=== PATIENT | female | born 1940 | race Caucasian/White ===

== ENCOUNTER 2016-11-08 09:39 | Inpatient (IN) | payer MEDICARE ==
[~2016-11-08] VITALS: Ht 159.4 cm; Wt 68.8 kg
[2016-11-08] VITALS (12 sets, daily range): BP systolic 112–146; BP diastolic 61–92; PULSE 57–79; RESP 12–20; O2SAT 93–98
[~2016-11-08 09:39] MED LIST: Bupivacaine Liposome 1.3% 20 mL Inj INFILTRATE ONE; CeFAZolin Inj 2 GM in IV Premix 1 EACH IV ONE; HYDR12.55 PO; IBUP200C PO; Lactated Ringer's 1,000 ML IV ONE; Vancomycin 1 Gm/200 mL NS Premix IV ONE
[2016-11-08] MEDS ORDERED: CeFAZolin 2 Gm/50 mL D5W Duplex Bag IV ONE (09:51)
[2016-11-08] MEDS ORDERED: Vancomycin 1,000mg/200 mL NS IV ONE (09:51)
[2016-11-08] MEDS ORDERED: 0.9% Sodium Chloride 100 ML ONE (10:50)
[2016-11-08] MEDS ORDERED: Tranexamic Acid 100 mg/mL 10 mL Inj ONE (10:50)
--- NOTE | 2016-11-08 10:54 | PCM.HPANE ---
Patient Data Surgeon Admitting Provider: Attending Provider:Bossman Barboza DO Primary Care Physician:Shital Leslie Other Provider:Andrea Knott Anesthesia Reason for Visit Left Hip Arthritis LEFT HIP ARTHRITIS Ht/WT & BMI Height (Feet): 5 Height (Inches): 2.75 Weight (Kilograms): 68.8 Body Mass Index 27.00 Allergies Coded Allergies: azithromycin (Verified Allergy, Unknown, hives, 10/29/16) Past Anesthesia History Anesthesia History: Denies:: Anesthesia Reactions, Fam Anesthesia Reaction Diabetes History Hx Diabetes?: No MRSA MRSA: No Medications Hypertension Medication: Yes Home Meds Incl Beta Garrett: No Reported Medications Ibuprofen 200 Mg [id number] Mg PO QID PRN For Pain Ref 0 10/29/16 Hydrochlorothiazide 12.5 Mg Tukfsu74.5 Mg PO DAILY 30 Days Ref 0 10/29/16 History History of ENT Problems?: Yes HEENT History: Positive for:: Glaucoma Denies:: Abnormal Airway Cataracts Difficult Intubation Dysphagia Hearing Problem Sinus Problem TMJ Denture Type: None Teeth Condition: Within Normal Limits Hx of Heart Problems?: Yes Cardiovascular History: Positive for:: Hypertension Denies:: AICD Abdominal Aortic Aneurism Atrial Fibrillation Cardiac Surgery Chest Pain Congestive Heart Failure Coronary Artery Disease Edema Heart Murmur Irregular Heartbeat Pacemaker Peripheral Vascular Valvular Heart Disease Hx of Respiratory Problem?: No Respiratory History: Denies:: Asthma COPD Emphysema Oxygen Administration Pneumonia Tuberculosis Use of C-PAP Machine Hx Neurologic Problems?: No Neurological History: Denies:: Alzheimer's Disease CVA Dementia Dizziness Headaches Multiple Sclerosis Parkinson's Disease Peripheral Neuropathy Seizures TIA Hx of GI Problems?: No Gastrointestinal History: Denies:: Cirrhosis Diverticulitis Gall Bladder Disease Gastroesphageal Reflux Gastrointestinal Bleeding Heartburn Hepatitis Hiatal Hernia Liver Disease Rectal Bleeding Hx of Problems?: No Genitourinary History: Denies:: Kidney Stones Urinary Tract Infection Female Hx: Denies:: Currently (hysterectomy) Problems with Breasts? Skin History: Denies:: History Skin Disorders? Pressure Ulcers Hx Musculoskeletal Problems?: Yes Musculoskeletal History: Positive for:: Degenerative Joint Musculoskeletal Trauma (left hip current admission problem) Osteoarthritis Denies:: Back Injury Fibromyalgia Joint Replacement Myasthenia Gravis Systemic Lupus Hx of Psycho/Social Problems?: No Psycho Social History: Denies:: Anxiety Hx Depression Hx Surgeries?: Yes (hysterectomy) Hx Any Other Health Problems?: Yes Other History: Positive for:: Cancer (uterine) Denies:: Thyroid Disease History Blood Transfusions: Positive for:: Accept Blood Products? Denies:: Blood Transfusions Hx Diabetes: No Hx Alcohol Use: YesAlcoholic Drinks Per Day: one to two glasses yearlyHx Substance Use: NoHave You Smoked inLast 12 mo: No Stop/Bang Treated for Sleep Apnea?: No Do You Have a CPAP Machine?: No P-Blood Pressure: treated: Yes B- Body Mass Index > 35 kg/m2: No A- Age over 50: Yes N- Neck Large Circumference: No G- Gender Male: No MALIK Risk Assessment: Low Risk, <3 Yes Risk Assessment Category Category 1A: Patient has history of documented sleep apnea, and HAS NOT received any narcotic, sedative or anesthesia administration during this stay. Category 1B: Patient has history of documented sleep apnea, and HAS received any narcotic , sedative or anesthesia administration during this stay Category 2: Patient has SUSPECTED Obstructive Sleep Apnea, and HAS received any narcotic , sedative or anesthesia administration during this stay. Category 3: Patient has SUSPECTED Obstructive Sleep Apnea and HAS NOT received narcotic, sedative or anesthesia administration during this stay. Category 4: Outpatient in Procedural Areas with known sleep apnea or who screen positive for High Risk via the STOP/BANG questionnaire. Exam Exam Vital Signs Vital Signs Date Time Temp Pulse Resp B/P Pulse Ox O2 Delivery O2 Flow Rate FiO2 11/08/16 10:15 36.3 61 18 146/75 97 Room Air General Appearance: Alert, Oriented X3, Cooperative, No Acute Distress HEENT/AIRWAY: MP 1 Lungs: Clear to Auscultation, Normal Air Movement Heart: Exam Unremarkable, Regular Rate/Rhythm, Normal S1, Normal S2, No Murmurs /Rubs/Gallops Meds/Labs/Diagnostics Admission Meds Current Medications Vancomycin/0.9 % Sod Chloride 1000 mg/Premix 200 ml @ 133.333 mls/hr 01 ONCE IV Last administered on 11/08/16 10:16; Start 11/08/16 at 01:00; Stop at 02:29; Status DC Lactated Ringer's (Lr) 1,000 ml @ 120 mls/hr Q8H20M ONCE IV Last administered on 11/08/16 09:50; Start 11/08/16 at 05:00; Stop 11/08/16 at 13:19 Plan Impression Patient chart reviewed, patient interviewed and anesthestic plan with risks, benefits, and alternatives discussed, and informed consent obtained. ASA Physical Status: ASA2 Mod Systemic Disease Anesthetic Plan: Regional Block Bene/Risks/Altern/Consents: Yes HP Complete Prior to Induction: Yes Bossman Lancaster MD Nov 08, 2016 10:54
[2016-11-08] MEDS ORDERED: Lactated Ringer's 1,000 ML IV SCH (11:22)
[2016-11-08] MEDS ORDERED: Lactated Ringer's 500 ML IV PRN (11:22)
[2016-11-08] MEDS ORDERED: Ondansetron 2 mg/mL 2 mL Inj IVPUSH PRN ×2 (11:25→13:55)
[2016-11-08] MEDS ORDERED: fentaNYL-PF 50 mCg/mL 2 mL Inj IVPUSH PRN (11:25)
[2016-11-08] MEDS ORDERED: EPHEDrine Sulfate 50 mg/mL Inj IVPUSH PRN (11:25)
[2016-11-08] MEDS ORDERED: MetoCLOpramide 5 mg/mL 2 mL Inj IVPUSH PRN (11:25)
[2016-11-08] MEDS ORDERED: Phenylephrine 10,000 mCg/mL Inj IVPUSH PRN (11:25)
[2016-11-08] MEDS ORDERED: HYDROmorphone 1 mg/mL Inj IVPUSH PRN (11:25)
[2016-11-08] MEDS ORDERED: Ropivacaine-PF 0.5% 30 mL Inj INFILTRATE ONE (11:56)
[2016-11-08] MEDS ORDERED: hydrOXYzine Pamoate 25 mg Capsule PO PRN (13:55)
[2016-11-08] MEDS ORDERED: Acetaminophen IV 1,000 MG in IV Premix 1 EACH IV ONE (13:55)
[2016-11-08] MEDS ORDERED: diphenhydrAMINE 25 mg Capsule PO PRN (13:55)
[2016-11-08] MEDS ORDERED: Polyethylene Glycol (PEG) 17 Gm Powder PO PRN (13:55)
[2016-11-08] MEDS ORDERED: HYDROcodone-APAP 5-325 mg Tablet PO PRN (13:55)
[2016-11-08] MEDS ORDERED: Magnesium Hydroxide 10 mL Oral Concentration PO PRN (13:55)
[2016-11-08] MEDS ORDERED: Ketorolac 15 mg/mL Inj IVPUSH PRN (13:55)
--- NOTE | 2016-11-08 14:57 | DRSVH ---
PROCEDURE: X-RAY PELVIS W/LAT HIP (LT) ([id number]) INDICATIONS: post op TECHNIQUE: AP pelvis and lateral view of the left hip acquired. COMPARISON: [facility], , XR PELVIS W LATERAL HIP LT, 08/11/2016, 15:30. FINDINGS: Bones: Patient is status post left hip arthroplasty, with hardware components in expected positions. The hip joint appears congruent. The visualized bony structures appear intact. Soft tissues: Overlying postoperative changes are noted. No suspicious soft tissue densities. IMPRESSION: 1. Expected postsurgical changes status post left hip arthroplasty. Dictated by: Eyal Thomas M.D. on 11/08/2016 at 14:54 Approved by: Eyal Thomas M.D. on 11/08/2016 at 14:56
[2016-11-08] MEDS: 0.9% Sodium Chloride 1,000 ML IV SCH (14:59)
[2016-11-08 15:19] LABS: APPEARANCE,URINE HAZY (CLEAR,HAZY); COLOR,URINE STRAW (YELLOW); OCCULT BLOOD,URINE TRACE (NEGATIVE); UROBILINOGEN,URINE NORMAL (NORMAL)
[2016-11-08] MEDS ORDERED: HYDROmorphone 0.5 mg/0.5 mL iSecure Syringe IVPUSH PRN (15:39)
--- NOTE | 2016-11-08 16:02 | NUR ---
Post op Transfer to [facility] room 1007 via bed at 14:45. Report received from supercharge repair supervisor, Roaxnne Michaels. Pt alert and oriented, denies nausea and pain. Water weight to L hip, dressing CDI. Spinal block, decreased sensation to mid-thigh. Mccoy draining to gravity.
--- NOTE | 2016-11-08 16:06 | PCM.ANEP1 ---
Post Anesthesia PACU Phase 1 Assessment Date of Service: Nov 08, 2016 Vital Signs Vital Signs Date Time Temp Pulse Resp B/P Pulse Ox O2 Delivery O2 Flow Rate FiO2 11/08/16 14:35 36.1 60 14 122/61 96 Room Air 11/08/16 14:22 20 98 11/08/16 14:15 57 12 112/63 97 Room Air 11/08/16 14:10 64 18 122/66 96 Room Air 11/08/16 14:05 63 12 121/92 96 Room Air 11/08/16 14:00 63 12 118/62 96 Room Air 11/08/16 13:55 16 97 11/08/16 13:55 68 16 118/62 97 Room Air 11/08/16 13:52 36.3 68 15 123/70 97 Room Air 11/08/16 10:15 36.3 61 18 146/75 97 Room Air Anesthetic Administered: Regional Block Level of Alertness: Awake, talking HUFFMAN's with Equal Strength: No (spinal block) Pain: No Nausea or Vomiting: No CV Function & Hydration Stable: Yes Airway Device: Oxygen Delivery: Room Air Lungs: Clear to Auscultation, Normal Air Movement Dermatome Level: L3,4 (Thigh) PACU Phase 2 Assessment Complications: No Follow up Care: No Patient Instructions Provided: N/A Comments Block receding appropriately Bossman Lancaster MD Nov 08, 2016 16:06
[2016-11-08] MEDS: Sodium Chloride LOK Flush 10 mL Syringe IV SCH (16:10)
[2016-11-08] MEDS ORDERED: CeFAZolin Inj 2 GM in IV Premix 1 EACH IV SCH (16:30)
[2016-11-08] MEDS ORDERED: Dexamethasone 4 mg/mL Inj ONE (16:39)
[2016-11-08] MEDS ORDERED: EPHEDrine/NS 5 mg/mL 5 mL Syringe ONE (16:39)
[2016-11-08] MEDS ORDERED: Ondansetron 2 mg/mL 2 mL Inj ONE (16:39)
[2016-11-08] MEDS ORDERED: Phenylephrine/NS 100 mCg/mL 10 mL Syringe IVPUSH ONE (16:39)
[2016-11-08] MEDS ORDERED: Propofol 10,000 mCg/mL 20 mL Inj ONE (16:39)
[2016-11-08] MEDS ORDERED: fentaNYL-PF 50 mCg/mL 2 mL Inj ONE (16:39)
[2016-11-08] MEDS ORDERED: Bupivacaine 0.5% 50 mL Inj ONE (16:39)
[2016-11-08] MEDS: CeFAZolin Inj 2 GM in IV Premix 1 EACH IV SCH (18:24)
[2016-11-08] MEDS: Senna-Docusate 8.6-50 mg Tablet PO SCH (20:59)
[2016-11-09] MEDS: 0.9% Sodium Chloride 1,000 ML IV SCH ×2 (00:04→09:51)
[2016-11-09] MEDS: Sodium Chloride LOK Flush 10 mL Syringe IV SCH ×2 (00:30→08:24)
[2016-11-09] MEDS: CeFAZolin Inj 2 GM in IV Premix 1 EACH IV SCH (03:10)
--- NOTE | 2016-11-09 03:46 | NUR ---
General Pt is alert, oriented, and able to make needs known. No changes in LOC noted. Pleasant and cooperative with care. Denies N/V/D, pain, resp distress and/or SOB. Able to move all extremities with full sensation reported post spinal block. Denies numbness or tingling. Dressing on left hip is C/D/I and water weight on left hip in place. Pt encourage to get out bed to sit on the edge of the bed, pt declined and prefer to wait for physical in the morning. Able to flex and extend feet with no issue. devine catheter in place, patent and draining yellow urine. Will continue to monitor.
[2016-11-09 04:25] VITALS: BP 112/71; PULSE 60; RESP 17; O2SAT 94
[2016-11-09 05:43] LABS: BASOPHILS % (AUTO) 0.1 % (0-3); EOSINOPHILS % (AUTO) 0.3 % (0-5); MONOCYTES % (AUTO) 10.2 % (4-12); Mean Corpuscular Hemoglobin 31.3 pg (27.0-35.0); Mean Corpuscular Volume 94.5 fL (81-100); NEUTROPHILS % (AUTO) 77.3 % (40-74); Platelet Count 179 bil/L (150-400)
[2016-11-09] MEDS: Senna-Docusate 8.6-50 mg Tablet PO SCH (08:30)
--- NOTE | 2016-11-09 08:58 | PCM.PNORTH ---
Subjective Date of Service: Nov 09, 2016 Visit Information: Reason for Visit Left Hip Arthritis Surgery/Surgery Date L ANTERIOR [facility] 11/08/16 Post-Op Day # 1 Date of Admission: Nov 08, 2016 at 15:36 Hospital Day # Subjective Patient states her pain is well controlled - she states she is taking only Tylenol at this time. She has not had therapy but is about to start. Postop General: No Complaints, No Shortness of Breath Pain Management: PO Objective Exam Objective Patient is sitting at the side of the bed preparing to stand with PT. Vital Signs and I/O Vital Sign - Last Date Time Temp Pulse Resp B/P Pulse Ox O2 Delivery O2 Flow Rate FiO2 11/09/16 04:25 36.6 60 17 112/71 94 Room Air Intake and Output 11/08/16 11/08/16 11/09/16 Cumulative From/Thru 15:00 23:00 07:00 10/29/16 11:18 - 11/09/16 06:12 Intake Total 1770 ml 1079 ml 2138 ml 4987 ml Output Total 300 ml 450 ml 950 ml 1700 ml Balance 1470 ml 629 ml 1188 ml 3287 ml Intake Oral 730 ml 1000 ml 1730 ml IV Total 1770 ml 349 ml 1138 ml 3257 ml Output Urine Total 220 ml 450 ml 950 ml 1620 ml Estimated Blood Loss 80 ml 80 ml # Bowel Movements 0 0 Lab & Micro Results Laboratory Tests Test 11/08/16 13:58 11/09/16 05:15 Urine Color Straw (YELLOW) Urine Appearance Hazy (CLEAR,HAZY) Urine pH 7.0 (5.0-8.0) Urine Specific [place] 1.010 (1.003-1.035) Urine Protein Negativemg/dL (NEG,TRACE) Urine Glucose (UA) Negativemg/dL (NEGATIVE) Urine Ketones Negativemg/dL (NEGATIVE) Urine Occult Blood Trace (NEGATIVE) Urine Nitrite Negative (NEGATIVE) Urine Bilirubin Negative (NEGATIVE) Urine Urobilinogen Normalmg/dL (NORMAL) Urine Leukocyte Esterase Negative (NEGATIVE) Urine RBC 0-2/hpf (0-2) Urine WBC 0-5/hpf (0-5) Urine Epithelial Cells Occasional/hpf (NONE-MOD) Urine Crystals None seen (NONE SEEN) Urine Bacteria None/hpf (NONE-FEW) Urine Hyaline Casts None/lpf (NONE) Urine Granular Casts None seen (NONE SEEN) Urine Waxy Casts None seen (NONE SEEN) Urine Red Blood Cell Casts None seen (NONE SEEN) Urine White Blood Cell Casts None seen (NONE SEEN) Urine Mucus None seen (None Seen) Urine Trichomonas None seen (NONE SEEN) Urine Yeast None (NONE SEEN) Urinalysis Comment None Urine Culture Reflexed Not indicated White Blood Count 7.9th/mm3 (3.8-10.1) Red Blood Count 3.26mil/mm3 (3.90-5.20) Hemoglobin 10.2g/dL (12.0-15.6) Hematocrit 30.8% (35.0-46.0) Mean Corpuscular Volume 94.5fL (81-100) Mean Corpuscular Hemoglobin 31.3pg (27.0-35.0) Mean Corpuscular Hemoglobin Concent 33.1% (32.0-37.0) Red Cell Distribution Width 12.4% (12.3-15.4) Platelet Count 179bil/L (150-400) Neutrophils (%) (Auto) 77.3% (40-74) Lymphocytes (%) (Auto) 12.0% (14-46) Monocytes (%) (Auto) 10.2% (4-12) Eosinophils (%) (Auto) 0.3% (0-5) Basophils (%) (Auto) 0.1% (0-3) Sodium Level 138mEq/L (134-144) Potassium Level 4.3mEq/L (3.5-5.2) Chloride Level 104mEq/L (97-108) Carbon Dioxide Level 24mmol/L (18-29) Blood Urea Nitrogen 10mg/dL (8-27) Creatinine 0.71mg/dL (0.57-1.00) Estimat Glomerular Filtration Rate 115mL/min (>59) Glucose Level 121mg/dL (60-99) Calcium Level 8.1mg/dL (8.5-10.1) Result Diagram: 11/09/1651411/09/16514 General Appearance: Alert, Oriented X3, Cooperative, No Acute Distress Extremities: Distal Pulses Palpable, No Compartment Syndrom Noted Postop Sensory Motor: Distal Motor Intact, Movement in Toes, Distal Sensation Intact, NVI Distally SURGICAL WOUND : Wound Location/Description Perioperative dressing c/d/i Dressing & Drainage Status: Intact Activity: Ambulating Independently Assessment & Plan Impression Postop day #1 left anterior total hip arthroplasty Problems: Plan Weightbearing: Weightbearing as tolerated with wheeled walker DVT prophylaxis: Aspirin 325 mg twice a day 6 weeks Physical therapy for transfers, progressive ambulation, strengthening Wound care: Perioperative dressing may be removed tomorrow. Patient has an island dressing at home that she may use over incision. Shower instructions: If incision is dry, absent drainage, patient may shower with incision uncovered beginning tomorrow. Analgesia: Percocet 5/325 mg tablet every 4 hours as needed for severe pain. Vistaril (hydroxyzine pamoate) 25 mg as needed for discomfort/spasms. Discharge plan: Discharge home today. Follow-up plan: In 2 weeks at [facility] with RUSSEL for wound check and at [address] Barboza with x-rays Jing Russell PA-C Nov 09, 2016 08:58
--- NOTE | 2016-11-09 09:22 | PCM.DIORTH ---
Ortho Discharge Instruction Date of Service: Nov 09, 2016 Dates of Hospitalization Date of Hospital Admission Nov 08, 2016 at 15:36 Providers Admitting Physician: Bossman Barboza DO Primary Care Physician: Shital Leslie Attending Physician: Bossman Barboza DO Diet Discharge Diet: No restrictions Activity Discharge Activity-General: Ice incision 3-5 time/day for 20min Left Lower Extremity: Weight Bearing as tolerated Dressing and Incisional Care Discharge Hygiene: DO NOT soak incision under water, NO bathtub, hot tub or whirlpool Additional Instructions Discharge Instructions Weightbearing: Weightbearing as tolerated with wheeled walker DVT prophylaxis: Aspirin 325 mg twice a day 6 weeks. Wear compression stockings bilaterally until 2 week follow up visit. Wound care: Bulky dressing may be removed tomorrow. Patient has an island dressing at home that she may use over incision. Shower instructions: If incision is dry, absent drainage, patient may shower with incision uncovered beginning tomorrow. If the silver dressing is clean, you may re-wet it and then wring it out so it's only slightly damp then reapply it to your incision. Then put the island dressing on over it. Analgesia: [place] (Hydrocodone/acetaminophen) 5/325 mg tablet every 4 hours as needed for severe pain. Vistaril (hydroxyzine pamoate) 25 mg as needed for discomfort/spasms. Discharge plan: Discharge home today. Follow-up plan: In 2 weeks at [facility] with RUSSEL for wound check and at [address] Barboza with x-rays Jing Russell PA-C Nov 09, 2016 09:22
[2016-11-09] MEDS ORDERED: HYDR-4003 PO (09:24)
[2016-11-09] MEDS ORDERED: HYDR-3797 PO (09:24)
[2016-11-09] MEDS ORDERED: ASPI325T32 PO (09:24)
--- NOTE | 2016-11-09 09:24 | NUR ---
Social Work: Initial Assessment/Readiness for D/C D: EMR reviewed. Please see Initial Assessment linked to this note for more information. Pt is a 76 year old female admitted [place] for elective left hip replacement per H&P. Pt's insurance is [employer]. PCP is CARLI Ibrahim. Pt is POD 1. Pt is likely to discharge home today, no needs. PT to evaluate pt twice today. No SW needs identified in conversations with pt or Ortho provider. SW met with pt and sister Elisa [phone] at bedside to conduct initial assessment. Pt was alert and oriented x3. SW explained role and wrote phone number on white board. SW provided [facility] Discharge Planning Checklist and encouraged pt to contact SW for any discharge planning questions. Pt's sister Elisa is designated d/c planning contact. Pt lives at home with her sister near [facility]. Pt lives in a two story home but will be remaining on the main level during her recovery. Pt's capacity for self-care assessed. Pt is independent with all ADLs at baseline. Pt uses no DME at baseline, but has a cane, raised toilet seat, and walker available for use at discharge. Pt drives. Pt has no HH or SNF history. Pt has no LTC or VA benefits. Pt has completed DPOA, pt's son is DPOA-HC. Pt is likely to d/c home with sister to transport via POV. SW will continue to follow. A: Pt who is independent at baseline and has the capacity for self-care. P: Pt anticipated to discharge home with sister to transport via POV. No SW needs identified, no MD orders received at this time. SW will continue to follow for needs until time of discharge. ROCCO Shabazz Addendum: 11/09/16 at 0927 by SIXTO TA Amended: Links added. Addendum: 11/09/16 at 0928 by SIXTO WILHELM Amended: Links added.
--- NOTE | 2016-11-09 10:44 | OP ---
[address] [address] OPERATIVE REPORT PATIENT: PALOMO CINTRON : 1940 MR#: [id number] ADMIT: 11/08/2016 JOB ID: [id number] DATE OF SURGERY: 11/08/2016 PREOPERATIVE DIAGNOSIS(ES): Left hip degenerative joint disease. POSTOPERATIVE DIAGNOSIS(ES): Left hip degenerative joint disease. PROCEDURE: Left direct anterior total hip replacement. SURGEON: Bossman Barboza DO OPTIMIZATION SPECIALIST: Garrett Mann MD and Jing Russell PA-C. INDICATIONS: Patient is a 76-year-old female with left hip severe degenerative arthritis who has failed conservative measures and wished to proceed with a left direct anterior total hip arthroplasty. We discussed risks, benefits, and possible complications of surgery. All questions were answered, and she would like to proceed. PROCEDURE IN DETAIL: The patient was brought to the operating room. She was given a preoperative antibiotic, spinal anesthetic, and the left hip was sterilely prepped and draped. An incision was made about 3 cm lateral and 2 cm distal to the ASIS overlying the TFL. Dissection was carefully carried through the subcutaneous tissue. The fascia overlying the TFL was incised and the interval was opened between the TFL and the sartorius. Retractors were placed and the circumflex vessels were identified and ligated with sutures and then cut with the Bovie. The fascia on the floor of the TFL was then released to gain access to the hip and the capsule. Retractors were placed anterior and posterior on the femoral neck and a T-shaped capsulotomy was performed to gain access to the hip. Next a provisional neck cut was made and the head fragment was removed, although it fragmented to some degree and was somewhat of a challenge to remove, but was removed and then the acetabulum was prepared. The pulvinar and labrum were removed and the acetabulum was reamed sequentially up to a 47. I placed a DePuy Boissevain 48 cup, had excellent purchase with the cup and added a single superior dome screw. Confirmation of cup placement and version was made with fluoroscopy. I elected to use a 32 Neutra liner, and this was impacted into position and then we began preparation for the stem. I had to make an additional neck cut because the first was a bit high and then we performed releases in order to gain exposure releasing laterally and then began with a box osteotome and broached the femur sequentially up to a size 4, which had excellent fit and fill. A calcar planer was used to smooth the top of the femur and a trial was performed with the 4 femur and the 32+1 head which seemed to fit quite nicely. I elected to use a ceramic head as we had somewhat been poly given her small cup sized and the DePuy Tri Lock size 4 standard stem was impacted into position followed by the +1.5, 32 ceramic head. The hip was located, had excellent range of motion and great stability. The wound was irrigated and then closed with 0-Vicryl to repair the capsule and 0-Vicryl to repair the TFL fascia. The wound was copiously irrigated and Naropin was added as an adjunct local anesthetic. The subcu was closed with 2-0 Vicryl. The skin was closed with a running subcuticular 4-0 Monocryl. Steri-Strips were added and a silver dressing. Patient tolerated the procedure well. BLOOD LOSS: 80 cc. POSTOPERATIVE PROTOCOL: Have the patient weightbear to tolerance. Use a cane or walker for one month postoperatively. Plan to use aspirin for DVT prophylaxis.
--- NOTE | 2016-11-09 11:25 | NUR ---
Social Work- Discharge Data: EMR reviewed. Pt to discharge today. Discharge orders are active. Pt has all necessary DME at home. Pt to d/c home with sister to transport via POV. No discharge needs. Assessment: Pt who is independent with ADLs and self-care Plan: Pt to d/c home with sister to transport via POV. No discharge needs. Flor Conde MSW
[2016-11-09 12:33] VITALS: BP 135/69; PULSE 80; RESP 18; O2SAT 97
--- NOTE | 2016-11-09 15:27 | NUR ---
Evaluation completed. Please go to "Notes" then click on "Assessments and Notes" (bottom left corner of screen). Then select appropriate discipline tab on top of screen.
--- NOTE | 2016-11-09 15:58 | NUR ---
Mobility/pain Patient up with physical therapy this am declined need for anything for pain including plain Tylenol. Patient has been asked t/o day but still declines need. Patient is moving well, up with FWW to bathroom . Patient will be discharging home with her sister this afternoon who will help with recovery.
--- NOTE | 2016-11-09 16:51 | NUR ---
Discharge Patient discharged home with sister. Discharge instructions reviewed with patient and her sister who will be her helper at home during recovery. Paper and written instructions given and discussed. Prescription for meds given and reviewed on usage. Patient agrees to understanding and denied any further questions when asked. Patient has follow up appointment already schedule and understands about incision care .
== END 2016-11-09 16:40 | disposition home or self-care (01) | DRG 470 ==
LOC: SAS 09:39 → OSC 15:36
PROVIDERS: ADMIT Orthopaedic Surgery; ATTEND Orthopaedic Surgery
PROC: 0SRB03Z Replacement of Left Hip Joint with Ceramic Synthetic Substitute, Open Approach (ICD-10-PCS; principal; 2016-11-09)
DX: M16.12 Unilateral primary osteoarthritis, left hip (principal); Z79.82 Long term (current) use of aspirin; I10 Essential (primary) hypertension